=== PATIENT | female | born 1990 | race African-American/Black ===

== ENCOUNTER → 2018-12-03 | Outpatient (CLI) | payer BC ==
--- NOTE | 2018-12-03 16:50 | RADIOLOGY REPORT (SQ) ---
EXAM DESCRIPTION: HYSTEROSALPINGOGRAM; HYSTERO CATH/INJECTION COMPLETED DATE/TIME: 12/03/2018 3:13 pm; 12/03/2018 3:14 pm REASON FOR STUDY: N97.9 FEMALE INFERTILITY, UNSPECIFIED N97.9 FEMALE INFERTILITY, UNSPECIFIED COMPARISON: None. PROCEDURE: PRE-PROCEDURE: Procedure was explained to the patient. She was told to expect cramping du ring the procedure, and possible spotting post procedure. PROCEDURE: The cervix was prepped in sterile fashion. Under direct visual inspection, the cervix was cannulated with the hysterosalpingogram catheter and contrast injected. TECHNIQUE: Temporal fluoroscopic images acquired during the procedure stored to PACS. FLUOROSCOPY TIME: Less than 10 seconds 20 digital radiographic images saved to PACS. LIMITATIONS: None. FINDINGS: UTERUS: No identified anomalies. No synechia. RIGHT ADNEXA: Normal size fallopian tube. Free spill of contrast into the peritoneal cavity. LEFT ADNEXA: Normal size fallopian tube. Free spill of contrast into the peritoneal cavity. POST PROCEDURE: The patient tolerated the procedure with no adverse effects. IMPRESSION: NORMAL HYSTEROSALPINGOGRAM. COMMENT: Quality ID 145: Final reports for procedures using fluoroscopy that document radiation exp osure indices, or exposure time and number of fluorographic images (if radiation exposure indices are not available) TECHNICAL DOCUMENTATION: JOB ID: [id number] [employer]- All Rights Reserved Reading location - IP/workstation name: [email or web address]
== END ==
LOC: RAD 15:09
PROVIDERS: ATTEND Obstetrics & Gynecology
DX: N97.9 Female infertility, unspecified (principal)
CPT/HCPCS: 58340; 74740

== ENCOUNTER 2019-02-23 22:10 | Emergency (ER) | payer BC ==
[2019-02-23 23:47] LABS: ABSOLUTE BASOPHILS # (AUTO) 0.1 10^3/uL (0.0-0.2); ABSOLUTE EOSINOPHILS # (AUTO) 0.4 10^3/uL (0.0-0.6); ABSOLUTE LYMPHOCYTES (AUTO) 2.3 10^3/uL (0.5-4.7); ABSOLUTE MONOCYTES (AUTO) 0.6 10^3/uL (0.1-1.4); ABSOLUTE NEUT (AUTO) 6.9 10^3/uL (1.7-8.2); BASOPHILS % (AUTO) 0.5 % (0-2); EOSINOPHILS % (AUTO) 4.2 % (0-6); HEMATOCRIT 36.4 % (36.0-47.0); HEMOGLOBIN 12.8 g/dL (12.0-15.5); MEAN CORPUSCULAR HEMOGLOBIN 30.6 pg (27.0-33.4); MEAN CORPUSCULAR HGB CONC 35.2 g/dL (32.0-36.0); MEAN CORPUSCULAR VOLUME 87 fl (80-97); MONOCYTES % (AUTO) 6.3 % (3-13); PLATELET COUNT 362 10^3/uL (150-450); RED BLOOD COUNT 4.19 10^6/uL (3.72-5.28); RED CELL DISTRIBUTION WIDTH 13.1 % (11.5-14.0); TOTAL CELLS COUNTED % (AUTO) 100 %; WHITE BLOOD COUNT 10.3 10^3/uL (4.0-10.5)
[2019-02-23 23:52] LABS: APPEARANCE,URINE SLIGHTLY-CLOUDY; BILIRUBIN,URINE NEGATIVE (NEGATIVE); COLOR,URINE YELLOW; GLUCOSE, URINE NEGATIVE (NEGATIVE); KETONES,URINE NEGATIVE (NEGATIVE); LEUKOCYTE ESTERASE,URINE NEGATIVE (NEGATIVE); NITRITE,URINE NEGATIVE (NEGATIVE); PROTEIN,URINE 30 mg/dL (NEGATIVE); URINE SPECIFIC GRAVITY 1.029
--- NOTE | 2019-02-24 02:39 | RADIOLOGY REPORT (SQ) ---
CLINICAL HISTORY: Pelvic pressure, bleeding,IUP w/ FHT on FRIDAY COMPARISON: None. TECHNIQUE: US TRANSVAGINAL on 02/24/2019 1:37 AM CDT FINDINGS: Uterus measures 9.5 cm. Cervix measures 3 cm. There is no evidence of IUP. Left ovarian cyst measures 2.3 cm. The ovaries are otherwise unremarkable with patent flow. IMPRESSION: No gestational sac visualized in the uterus.
--- NOTE | 2019-02-24 03:09 | ER Document Report ---
Entered by MALI SAWANT SCRIBE 02/24/19 0142 Acting as scribe for:NARAYAN FELDMAN MD ED General - General Chief Complaint: Vaginal Bleeding Stated Complaint: VAGINAL BLEEDING, 7 WEEKS PREG Time Seen by Provider: 02/24/19 01:26 Primary Care Provider: VENECIA LAGUERRE MD [Primary Care Provider] - Follow up as needed Notes: Patient is a 28-year-old female that is currently 7 weeks presents to the emergency department complaining of vaginal bleeding. Patient states that it began today, that the bleeding was brown spotting. Patient states that on Monday 02/19 she had an ultrasound done, and was told she has a intrauterine with a heartbeat present. Patient states that this is her first , patient is a A0. Patient states that she is currently taking prenatals nothing else. TRAVEL OUTSIDE OF THE [place] IN LAST 30 DAYS: No - Related Data Allergies/Adverse Reactions: No Known Allergies Allergy (Verified 02/23/19 22:27) Past Medical History - General Information source: Patient Last Menstrual Period: 12/29/18 - Social History Smoking Status: Never Smoker Cigarette use (# per day): No Chew tobacco use (# tins/day): No Frequency of alcohol use: None Drug Abuse: None Family History: Reviewed & Not Pertinent Patient has suicidal ideation: No Patient has homicidal ideation: No Past Surgical History: Reports: Hx Orthopedic Surgery - rt ft bunion surg Review of Systems - Review of Systems Constitutional: No symptoms reported EENT: No symptoms reported Cardiovascular: No symptoms reported Respiratory: No symptoms reported Gastrointestinal: No symptoms reported Genitourinary: No symptoms reported Female Genitourinary: See HPI, , Vaginal bleeding Musculoskeletal: No symptoms reported Skin: No symptoms reported Hematologic/Lymphatic: No symptoms reported Neurological/Psychological: No symptoms reported -: Yes All other systems reviewed and negative Physical Exam - Vital signs Vitals: Temp Pulse Resp BP Pulse Ox 98.1 F 88 18 134/62 H 99 02/23/19 22:32 02/23/19 22:32 02/23/19 22:32 02/23/19 22:32 02/23/19 22:32 - Notes Notes: Physical Exam: General: Alert, appears well. HEENT: Normocephalic. Atraumatic. PERRL. Extraocular movements intact. Oropharynx clear. Neck: Supple. Non-tender. Respiratory: No respiratory distress. Clear and equal breath sounds bilaterally. Cardiovascular: Regular rate and rhythm. Abdominal: Normal Inspection. Non-tender. No distension. Normal Bowel Sounds. Back: Non-tender. No deformity or step off. Extremities: Moves all four extremities. Upper extremities: Normal inspection. Normal ROM. Lower extremities: Normal inspection. No edema. Normal ROM. Neurological: Normal cognition. AAOx4. Normal speech. Psychological: Normal affect. Normal Mood. Skin: Warm. Dry. Normal color. Course - Vital Signs Vital signs: Temp Pulse Resp BP Pulse Ox 98.1 F 88 18 134/62 H 99 02/23/19 22:32 02/23/19 22:32 02/23/19 22:32 02/23/19 22:32 02/23/19 22:32 - Laboratory Result Diagrams: 02/23/19 23:20 Laboratory results interpreted by me: 02/23/19 02/23/19 23:20 23:20 Beta HCG, Quant 5778.90 H Urine Protein 30 H Urine Blood LARGE H Urine Urobilinogen 2.0 H Urine Ascorbic Acid 40 H - Diagnostic Test Radiology reviewed: Image reviewed, Reports reviewed - Ultrasound does not show a gestational sac. Discharge - Discharge Clinical Impression: Complete miscarriage Condition: Stable Disposition: HOME, SELF-CARE Additional Instructions: Miscarriage You have had a miscarriage (medically called a "spontaneous "). The miscarriage occurred because the fetus did not develop normally. There is nothing you did to cause it, and nothing you could have done to prevent it. About one in four ends in miscarriage. You should rest in bed for two or three days. As there is some risk of infection of the uterus, you should not have intercourse for one week (or until okayed by your physician). You might not have a period for six to eight weeks. You should not become again for at least three months -- the uterus requires time to get back to normal. Call the doctor or return for re-examination if there is heavy or persistent vaginal bleeding, fever, foul discharge, continued cramping pains, or abdominal pain. [facility] tomorrow to schedule follow-up appointment. RETURN TO THE EMERGENCY ROOM IF ANY NEW OR WORSENING SYMPTOMS. Referrals: VENECIA LAGUERRE MD [Primary Care Provider] - Follow up as needed Scribe Attestation: 02/24/19 03:10 I personally performed the services described in the documentation, reviewed and edited the documentation which was dictated to the scribe in my presence, and it accurately records my words and actions. I personally performed the services described in the documentation, reviewed and edited the documentation which was dictated to the scribe in my presence, and it accurately records my words and actions.
[2019-02-24 04:20] VITALS: BP 128/60
== END 2019-02-24 04:05 | disposition home or self-care (01) ==
LOC: ER 22:10
DX: O03.9 Complete or unspecified spontaneous abortion without complication (principal); Z3A.01 Less than 8 weeks gestation of pregnancy
CPT/HCPCS: 36415; 76817; 81001; 84702; 85025; 86900; 86901; 99284

== ENCOUNTER 2020-02-05 22:51 | Inpatient (IN) | payer MEDICAID ==
[2020-02-05 23:43] LABS: APPEARANCE,URINE SLIGHTLY-CLOUDY; BILIRUBIN,URINE NEGATIVE (NEGATIVE); COLOR,URINE YELLOW; GLUCOSE, URINE NEGATIVE (NEGATIVE); KETONES,URINE NEGATIVE (NEGATIVE); LEUKOCYTE ESTERASE,URINE MODERATE (NEGATIVE); NITRITE,URINE NEGATIVE (NEGATIVE); PROTEIN,URINE NEGATIVE (NEGATIVE); URINE SPECIFIC GRAVITY 1.017; UROBILINOGEN,URINE NEGATIVE mg/dL (<2.0)
[2020-02-05 23:59] LABS: URINE AMPHETAMINES SCREEN NEGATIVE; URINE BARBITURATES SCREEN NEGATIVE; URINE BENZODIAZEPINES SCREEN NEGATIVE; URINE COCAINE SCREEN NEGATIVE; URINE MARIJUANA (THC) SCREEN NEGATIVE; URINE METHADONE SCREEN NEGATIVE; URINE PHENCYCLIDINE SCREEN NEGATIVE
[2020-02-06] MEDS ORDERED: OXYTOCIN 10 UNIT/ML VIAL ONE ×2 (01:32→04:55)
[2020-02-06] MEDS ORDERED: EPHEDRINE SULFATE INJ 50 MG/1 ML AMPULE ONE ×2 (01:33→04:55)
[2020-02-06] MEDS ORDERED: LIDOCAINE 1% INJ-PF (10 MG/ML) 30 ML SDV ONE ×3 (01:33→04:36)
[2020-02-06] MEDS ORDERED: FENTANYL/BUPIVACAINE/NS/PF 300 MCG/150 ML RTUINJ EPI ONE (01:33)
[2020-02-06] MEDS ORDERED: OXYTOCIN/0.9 % SODIUM CHLORIDE 0 UNIT/0 ML RTUINJ ONE (01:33)
[2020-02-06] MEDS ORDERED: BUPIVACAINE HCL 0.25 % INJ/PF (2.5 MG/1 ML) 30 ML VIAL ONE (01:33)
[2020-02-06] MEDS ORDERED: MISOPROSTOL 0.2 MG TABLET ONE (01:33)
[2020-02-06] MEDS: RINGERS SOLUTION,LACTATED 1,000 ML IV PRN ×2 (01:39→03:01)
[2020-02-06 01:58] LABS: ABSOLUTE EOSINOPHILS # (AUTO) 0.1 10^3/uL (0.0-0.6); ABSOLUTE LYMPHOCYTES (AUTO) 1.3 10^3/uL (0.5-4.7); ABSOLUTE MONOCYTES (AUTO) 0.8 10^3/uL (0.1-1.4); ABSOLUTE NEUT (AUTO) 7.7 10^3/uL (1.7-8.2); BASOPHILS % (AUTO) 0.2 % (0-2); EOSINOPHILS % (AUTO) 0.8 % (0-6); HEMATOCRIT 32.4 % (36.0-47.0); HEMOGLOBIN 11.2 g/dL (12.0-15.5); LYMPHOCYTES % (AUTO) 13.2 % (13-45); MEAN CORPUSCULAR HEMOGLOBIN 29.9 pg (27.0-33.4); MEAN CORPUSCULAR HGB CONC 34.5 g/dL (32.0-36.0); MEAN CORPUSCULAR VOLUME 87 fl (80-97); MONOCYTES % (AUTO) 7.8 % (3-13); PLATELET COUNT 293 10^3/uL (150-450); RED BLOOD COUNT 3.74 10^6/uL (3.72-5.28); RED CELL DISTRIBUTION WIDTH 14.8 % (11.5-14.0); TOTAL CELLS COUNTED % (AUTO) 100 %; WHITE BLOOD COUNT 9.9 10^3/uL (4.0-10.5)
[2020-02-06] MEDS ORDERED: CITRIC ACID/SODIUM CITRATE ORAL SOLN 15 ML UDCUP ONE (04:36)
[2020-02-06] MEDS ORDERED: CEFAZOLIN 2 GM/D5W RTU 2 GM/50 ML RTUPB IV ONE (04:36)
[2020-02-06] MEDS ORDERED: LIDOCAINE 2% INJ-PF (20 MG/ML) 10 ML AMPUL ONE (04:41)
--- NOTE | 2020-02-06 04:43 | Admission Physical ---
Datetime Report Generated by CPN: 02/06/2020 04:42 CURRENT ADMISSION Chief Complaint: Uterine Contractions Indication for Induction: Not Applicable Admit Impression : Term, Intrauterine ; Active Labor; Intact Membranes Admit Plan: Admit to Unit; Initiate Labor Protocol ALLERGIES Medication Allergies: No Medication Allergies: No Known Allergies (02/05/2020) Latex: No Latex Allergies Food Allergies: denies Environmental Allergies: denies OBSTETRICAL HISTORY EDC: 02/06/2020 00:00 : 2 Para: 0 Term: 0 : 0 SAB: 1 IAB: 0 Livin Gestational Diabetes: No Rh Sensitization: No Incompetent Cervix: No DEBRA: No Infertility: No ART Treatment: Yes Uterine Anomaly: No IUGR: No Hx Previous C/S: No Macrosomia: No Hx Loss/Stillborn: No PIH: No Hx : No Placenta Previa/Abruption: No Depression/PP Depression: No PTL/PROM: No Post Hemorrhage: No Current Procedures: Ultrasound; NST Obstetrical History Comments: g1-sab 7-8 weeks g2-current , clomid SEE RECORDS Alcohol: No Marijuana : No Cocaine: No Other Illicit Drugs: No Cigarettes: Never Smoker. [id number] MEDICAL HISTORY Diabetes: No Blood Transfusion: No Pulmonary Disease (Asthma, TB): No Breast Disease: No Hypertension: No Mortgage Or Loan Underwriter Surgery: No Heart Disease: No Hosp/Surgery: Yes Autoimmune Disorder: No Anesthetic Complications: No Kidney Disease: No Abnormal Pap Smear: No Neuro/Epilepsy: No Psychiatric Disorders: No Other Medical Diseases: No Hepatitis/Liver Disease: No Significant Family History: No Varicosities/Phlebitis: No Trauma/Violence : No Thyroid Dysfunction: No Medical History Comments: bunion surgery on right foot in 2008, clomid INFECTIOUS HISTORY Gonorrhea: No Genital Herpes: No Chlamydia: No Tuberculosis: No Syphilis: No Hepatitis: No HIV/AIDS Exposure: No Rash or Viral Illness: No HPV: No Infectious History Comments: trich in 2019 per records PHYSICAL EXAM General: Normal HEENT: Normal Neurologic: Normal Thyroid: Normal Heart: Normal Lungs: Normal Breast: Normal Back: Normal Abdomen: Normal Genitourinary Exam: Normal Extremities: Normal DTRs: Normal Pelvic Type: Adequate Vital Signs: Reviewed; Within Normal Limits VAGINAL EXAM Dilatation: 4 Effacement: 90 Station: -2 MEMBRANES Pooling: Negative Membranes: Intact FETUS A EGA: 40.0 Monitoring: External US FHR- Baseline: 150 Variability: Moderate 6-25bpm Accelerations: 15X15 Decelerations: None FHR Category: Category I Estimated Weight (gm): 3500 Presentation: Vertex Admit Comment: Late entry: patient began to have recurrent late decels soon after epidural received. corrections done and heart tones more reassuring. AROM performed with meconium present. continued to monitor and FHTs became more concenring with again repetitive prolonged decels. d/w pt and partner regarding need for ceserean delivery and they are in agreement. PLANS FOR LABOR AND DELIVERY Labor and Delivery: Plan Pain Management: Medications Feeding Preference: Breast Benefit of Breast Feed Discussed: Yes Circumcision: Yes INFORMED CONSENT Signature: with User ID: [email or web address]
[2020-02-06] MEDS ORDERED: MIDAZOLAM 2 MG/2 ML INJ ONE (04:55)
[2020-02-06] MEDS ORDERED: FENTANYL CITRATE INJ/PF 100 MCG/2 ML AMPUL ONE (04:55)
[2020-02-06] MEDS ORDERED: KETOROLAC TROMETHAMINE INJ/PF 30 MG/1 ML SDV ONE (04:55)
[2020-02-06] MEDS ORDERED: ONDANSETRON HCL INJ/PF 4 MG/2 ML SDV ONE (04:56)
[2020-02-06] MEDS ORDERED: METHYLERGONOVINE MALEATE INJ/PF 0.2 MG/1 ML AMPULE ONE (04:56)
[2020-02-06] MEDS ORDERED: ACETAMINOPHEN 1,000 MG/100 ML RTUPB IV ONE (04:56)
[2020-02-06] MEDS ORDERED: OXYCODONE-ACETAMINOPHEN 5-325 MG TABLET PO PRN (05:42)
[2020-02-06] MEDS ORDERED: MEASLES,MUMPS&RUBELLA VACC/PF 0.5 ML VIAL SUBCUT PRN (05:42)
[2020-02-06] MEDS ORDERED: ACETAMINOPHEN 325 MG TABLET PO PRN (05:42)
[2020-02-06] MEDS ORDERED: PROMETHAZINE HCL INJ 25 MG/1 ML VIAL IV PRN (05:42)
[2020-02-06] MEDS ORDERED: ACETAMINOPHEN 1,000 MG/100 ML RTUPB IV PRN (05:42)
[2020-02-06] MEDS ORDERED: DIPH/PERTUSS(ACELL)/TETANUS VAC/PF 0.5 ML SYR (>=10YO) IM PRN (05:42)
[2020-02-06] MEDS ORDERED: OXYTOCIN/0.9 % SODIUM CHLORIDE 30 UNIT/500 ML RTUINJ IV PRN (05:42)
[2020-02-06] MEDS ORDERED: RINGERS SOLUTION,LACTATED 1,000 ML IV PRN (05:42)
--- NOTE | 2020-02-06 05:51 | Operative Report ---
Operative Report DATE OF SURGERY: 02/06/20 PREOPERATIVE DIAGNOSIS: IUP @ 40 wks, nonreassuring heart tones POSTOPERATIVE DIAGNOSIS: same OPERATION: Primary low transverse hysterotomy section SURGEON: YANICK RICH ANESTHESIA: Epidural TISSUE REMOVED OR ALTERED: None COMPLICATIONS: None ESTIMATED BLOOD LOSS: 800 cc INTRAOPERATIVE FINDINGS: Male infant cephalic presentation with Apgars of 8 and 9 PROCEDURE: PROCEDURE IN DETAIL: The patient was taken to the operating room, prepared and draped in a normal sterile fashion in a supine position with a leftward tilt. A transverse skin incision was made with a scalpel and carried through to the underlying layer of fascia with the same scalpel. The fascia was excised in the midline and extended laterally with Vince. The fascia was then dissected from the rectus muscle sharply with Vince and the rectus muscle was divided and the peritoneal cavity was entered sharply with the same Metzenbaum. With good visualization of the bladder and the uterus the bladder blade was inserted. The hysterotomy was nicked with a scalpel and extended laterally with surgeon finger fraction. The was then delivered atraumatically. The nose and mouth were suctioned with a suction bulb, the cord was clamped and cut and handed off to awaiting pediatricians. Cord blood was collected. The placenta was removed manually. The uterus was exteriorized and cleared of clots and debris. The hysterotomy was closed with 0 Monocryl in a running, locked fashion. A second layer of the same suture was used to imbricate to ensure hemostasis. The uterus was returned to the abdomen and peritoneal cavity was cleared of clots and debris. The rectus muscle and peritoneum were repaired with mattress stitch of 2-0 Chromic. The fascia was closed with 0-Vicryl. The subcutaneous layer was closed with plain catgut and the skin was closed with 4-0 Vicryl. The patient tolerated the procedure well. Sponge, lap, and needle counts correct x2 and the patient was taken to recovery in stable condition.
--- NOTE | 2020-02-06 06:25 | Delivery Summary ---
Del Sum A-C Datetime Report Generated by CPN: 02/06/2020 06:25 DELIVERY PERSONNEL DELIVERY PERSONNEL: [id number] Delivery Doctor:: Madelin Romero MD Anesthesiologist:: Dr. Radha MD FAMILY INDEPENDENCE CASE MANAGER:: Vielka Boykin CRNA Wet Press Tender:: Shantal Berkowitznic, RN Photonics Engineering Technician/WEIGHTS AND MEASURES SEALER: Maryantonio Gonzales, ST Photonics Engineering Technician/WEIGHTS AND MEASURES SEALER: Ingrid Lerner, ST MATERNAL INFORMATION Delivery Anesthesia: Epidural Medications After Delivery: Pitocin Bolus-Please Comment Delivery QBL: 340 Maternal Complications: None LABOR SUMMARY EDC: 02/06/2020 00:00 No. Babies in Womb: 1 Attempted: No Labor Anesthesia: Epidural LABOR INFORMATION Reason for Induction: Not Applicable Onset of Labor: 02/06/2020 01:28 Oxytocin: N/A Group B Beta Strep: negative Antibiotics # of Doses: 0 Antibiotics Time of Last Dose: N/A Name of Antibiotic Given: N/A Steroids Given: None Reason Steroids Not Administered: Not Applicable MEMBRANES Membranes Rupture Method: Artificial Rupture of Membranes: 02/06/2020 03:49 Length of Rupture (hr): 1.37 Amniotic Fluid Color: Moderate Meconium Amniotic Fluid Amount: Moderate Amniotic Fluid Odor: Normal STAGES OF LABOR Stage 3 hr: 0 Stage 3 min: 1 Total Time in Labor hr: 3 Total Time in Labor min: 44 VAGINAL DELIVERY Episiotomy: None Laceration #1: None Laceration Extension #1: N/A CSECTION DELIVERY Primary Indication: Nonreassuring Status CSection Urgency: Non-Scheduled CSection Incidence: Primary Labor: Labor Elective: Nonelective CSection Incision: Lower Uterine Transverse BABY A INFORMATION Delivery Date/Time: 02/06/2020 05:11 Method of Delivery: Nurse Controlled Delivery: No Born in Route : No : N/A Forceps: N/A Vacuum Extraction: N/A Shoulder Dystocia : No PRESENTATION/POSITION BABY A Presentation: Cephalic Cephalic Presentation: Vertex Vertex Position: Left Occipital Anterior Breech Presentation: N/A PLACENTA INFORMATION BABY A Placenta Delivery Time : 02/06/2020 05:12 Placenta Method of Delivery: Manual Removal Placenta Status: Delivered SCORES BABY A Heart Rate 1 min: >100 bpm Resp Effort 1 min: Good Cry Reflex Irritability 1 min: Cough or Sneeze or Pulls Away Muscle Tone 1 min: Active Motion Color 1 min: Blue/Pale Resuscitation Effort 1 min: Tactile Stimulation SCORE 1 MIN: 8 Heart Rate 5 min: >100 bpm Resp Effort 5 min: Good Cry Reflex Irritability 5 min: Cough or Sneeze or Pulls Away Muscle Tone 5 min: Active Motion Color 5 min: Body [place], Extremities Blue Resuscitation Effort 5 min: Tactile Stimulation SCORE 5 MIN: 9 INFANT INFORMATION BABY A Gestational Age at Delivery: 40.0 Gestational Status: Full Term- 39- 40.6 Weeks Outcome : Liveborn Infant Condition : Stable Infant Sex: Male IDENTIFICATION BABY A Verification Date/Time: 02/06/2020 05:21 ID Band Number: [id number] Mother's Name Verified: Yes RN Verifying Infant: Bernadine Valdovinos ALEXANDRA Additional Verifying Personnel: Sophie Issa RN WEIGHT/LENGTH BABY A Birthweight (gm): 3200 Infant Weight (lb): 7 Weight (oz): 1 Length (in): 20.00 Infant Length (cm): 50.80 CORD INFORMATION BABY A No. Cord Vessels: 3 Nuchal Cord : Around Neck x1, Tight Cord Blood Taken: Yes-For Eval (Mom's Blood Type - or O+) Suction: Mouth; Nose ASSESSMENT BABY A Complications: Multiple Late Decels; Multiple Variable Decels; Other Complications- Other: prolonged declerations Physical Findings at Delivery: Within Normal Limits Physical Findings- Other: See full nursery collections officer Infant Respirations: Appears Normal Skin to Skin: No Printed Circuit Boards Pinner/ALS Called : No Transferred To: Nursery BABY B INFORMATION : N/A
[2020-02-06] MEDS: OXYCODONE-ACETAMINOPHEN 5-325 MG TABLET PO PRN ×2 (08:35→19:45)
[2020-02-06] MEDS: MORPHINE SULFATE 10 MG/ML INJ IV PRN ×2 (09:39→17:25)
[2020-02-06] MEDS: PRENATAL VITAMIN W DHA CAPSULE PO SCH (09:40)
[2020-02-06] MEDS: DOCUSATE SODIUM 100 MG CAPSULE PO SCH ×2 (09:40→17:25)
[2020-02-06] MEDS: KETOROLAC TROMETHAMINE INJ/PF 30 MG/1 ML SDV IV SCH ×2 (14:15→21:05)
[2020-02-07] MEDS: IBUPROFEN 800 MG TABLET PO SCH ×4 (05:12→23:13)
[2020-02-07 06:30] LABS: HEMATOCRIT 28.5 % (36.0-47.0); HEMOGLOBIN 9.9 g/dL (12.0-15.5); MEAN CORPUSCULAR HGB CONC 34.6 g/dL (32.0-36.0); MEAN CORPUSCULAR VOLUME 87 fl (80-97); PLATELET COUNT 237 10^3/uL (150-450); RED CELL DISTRIBUTION WIDTH 14.4 % (11.5-14.0); WHITE BLOOD COUNT 9.7 10^3/uL (4.0-10.5)
--- NOTE | 2020-02-07 08:48 | PDOC PROGRESS REPORT ---
Subjective Progress Note for:: 02/07/20 Subjective:: Doing well. No f/c, n/v overnight. Voiding well this am. Pain managed with Ibuprofen and Percocet. Breast feeding and is going well. States milk not "coming in well yet". Discussed it will be 3-5 days. Hydration encouraged. Bleeding light. No dizziness with ambulation. Passing gas Reason For Visit: Physical Exam - Physical Exam Vital Signs: Temp Pulse Resp BP Pulse Ox 97.6 F 102 H 16 109/56 L 100 02/07/20 07:45 02/07/20 07:45 02/07/20 07:45 02/07/20 07:45 02/07/20 07:45 Intake & Output 02/06/20 02/07/20 02/08/20 06:59 06:59 06:59 Intake Total 171 2480 Output Total 3450 Balance 171 -970 Weight 93.3 kg General appearance: PRESENT: no acute distress, cooperative Respiratory exam: PRESENT: clear to auscultation gerry Cardiovascular exam: PRESENT: RRR, +S1, +S2 Pulses: PRESENT: normal dorsalis pedis pul, +2 pedal pulses bilateral GI/Abdominal exam: PRESENT: normal bowel sounds - Mild tenderness when palpating fundus. Fundus firm and 1 below, soft Extremities exam: PRESENT: full ROM. ABSENT: calf tenderness, clubbing, pedal edema Psychiatric exam: PRESENT: appropriate affect, normal mood Result Laboratory Results: 02/07/20 06:05 02/07/20 06:05 WBC 9.7 RBC 3.30 L Hgb 9.9 L Hct 28.5 L MCV 87 MCH 30.0 MCHC 34.6 RDW 14.4 H Plt Count 237 Assessment & Plan - Diagnosis (1) S/P primary low transverse Is this a current diagnosis for this admission?: Yes - Time Time Spent with patient: Less than 15 minutes Medications reviewed and adjusted accordingly: Yes Anticipated discharge: Home Within: within 48 hours - Plan Summary Plan Summary: 29 yo s/p PCS for NRFHT on 02/06/20, PPD # 1 -Doing well -Tolerating PO -Voiding, passing gas -Breast feeding, without incidence -Bleeding light - Hgb pp 11.9-->9.9, Iron ordered BID -Baby boy , doing well. -Continue current PP care
[2020-02-07] MEDS: DOCUSATE SODIUM 100 MG CAPSULE PO SCH ×2 (09:56→17:48)
[2020-02-07] MEDS: FERROUS SULFATE 325 MG TABLET PO SCH ×2 (09:56→17:48)
[2020-02-07] MEDS: PRENATAL VITAMIN W DHA CAPSULE PO SCH (10:32)
[2020-02-07] MEDS: SIMETHICONE 80 MG TAB.CHEW PO PRN (20:42)
[2020-02-08] MEDS: IBUPROFEN 800 MG TABLET PO SCH ×2 (05:05→12:30)
--- NOTE | 2020-02-08 08:56 | PDOC DISCHARGE SUMMARY ---
Impression - Admit/DC Date/PCP Admission Date/Primary Care Provider: 02/06/20 01:33 YANICK RICH MD Discharge Date: 02/08/20 - Discharge Diagnosis (1) Active labor at term Is this a current diagnosis for this admission?: Yes (2) Non-reassuring electronic monitoring tracing Is this a current diagnosis for this admission?: Yes (3) S/P primary low transverse Is this a current diagnosis for this admission?: Yes - Additional Information Discharge Diet: Regular Discharge Activity: No Lifting/Push/Pulling, Pelvic Rest, No tub bath Referrals: YANICK RICH MD [Primary Care Provider] - Prescriptions: Ibuprofen [Motrin 800 mg Tablet] 800 mg PO Q8HP PRN #90 tablet PRN Reason: Oxycodone HCl/Acetaminophen [Percocet 5-325 mg Tablet] 1 tab PO Q4HP PRN #30 tablet PRN Reason: Home Medications: Pnv No.95/Ferrous Fum/Folic AC [ Vitamins Tablet] 1 tab PO DAILY 02/05/20 Ibuprofen [Motrin 800 mg Tablet] 800 mg PO Q8HP PRN #90 tablet 02/08/20 Oxycodone HCl/Acetaminophen [Percocet 5-325 mg Tablet] 1 tab PO Q4HP PRN #30 tablet 02/08/20 Results Laboratory Results: WBC 9.7 10^3/uL (4.0-10.5) 02/07/20 06:05 RBC 3.30 10^6/uL (3.72-5.28) L 02/07/20 06:05 Hgb 9.9 g/dL (12.0-15.5) L 02/07/20 06:05 Hct 28.5 % (36.0-47.0) L 02/07/20 06:05 MCV 87 fl (80-97) 02/07/20 06:05 MCH 30.0 pg (27.0-33.4) 02/07/20 06:05 MCHC 34.6 g/dL (32.0-36.0) 02/07/20 06:05 RDW 14.4 % (11.5-14.0) H 02/07/20 06:05 Plt Count 237 10^3/uL (150-450) 02/07/20 06:05 Lymph % (Auto) 13.2 % (13-45) 02/06/20 01:48 [place] % (Auto) 7.8 % (3-13) 02/06/20 01:48 Eos % (Auto) 0.8 % (0-6) 02/06/20 01:48 Baso % (Auto) 0.2 % (0-2) 02/06/20 01:48 Absolute Neuts (auto) 7.7 10^3/uL (1.7-8.2) 02/06/20 01:48 Absolute Lymphs (auto) 1.3 10^3/uL (0.5-4.7) 02/06/20 01:48 Absolute Monos (auto) 0.8 10^3/uL (0.1-1.4) 02/06/20 01:48 Absolute Eos (auto) 0.1 10^3/uL (0.0-0.6) 02/06/20 01:48 Absolute Basos (auto) 0.0 10^3/uL (0.0-0.2) 02/06/20 01:48 Seg Neutrophils % 78.0 % (42-78) 02/06/20 01:48 Urine Color YELLOW 02/05/20 23:04 Urine Appearance SLIGHTLY-CLOUDY 02/05/20 23:04 Urine pH 6.0 (5.0-9.0) 02/05/20 23:04 Ur Specific [place] 1.017 02/05/20 23:04 Urine Protein NEGATIVE mg/dL (NEGATIVE) 02/05/20 23:04 Urine Glucose (UA) NEGATIVE mg/dL (NEGATIVE) 02/05/20 23:04 Urine Ketones NEGATIVE mg/dL (NEGATIVE) 02/05/20 23:04 Urine Blood SMALL (NEGATIVE) H 02/05/20 23:04 Urine Nitrite NEGATIVE (NEGATIVE) 02/05/20 23:04 Urine Bilirubin NEGATIVE (NEGATIVE) 02/05/20 23:04 Urine Urobilinogen NEGATIVE mg/dL (<2.0) 02/05/20 23:04 Ur Leukocyte Esterase MODERATE (NEGATIVE) H 02/05/20 23:04 Urine Ascorbic Acid NEGATIVE (NEGATIVE) 02/05/20 23:04 Urine Opiates Screen NEGATIVE 02/05/20 23:04 Urine Methadone Screen NEGATIVE 02/05/20 23:04 Ur Barbiturates Screen NEGATIVE 02/05/20 23:04 Ur Phencyclidine Scrn NEGATIVE 02/05/20 23:04 Ur Amphetamines Screen NEGATIVE 02/05/20 23:04 U Benzodiazepines Scrn NEGATIVE 02/05/20 23:04 Urine Cocaine Screen NEGATIVE 02/05/20 23:04 U Marijuana (THC) Screen NEGATIVE 02/05/20 23:04 RPR NONREACTIVE (NONREACTIVE) 02/06/20 01:48 Blood Type O POSITIVE 02/06/20 01:48 Antibody Screen NEGATIVE 02/06/20 01:48 Plan Plan of Treatment: follow up in [address] [facility] for incision check
[2020-02-08] MEDS: FERROUS SULFATE 325 MG TABLET PO SCH (09:56)
[2020-02-08] MEDS: DOCUSATE SODIUM 100 MG CAPSULE PO SCH (09:56)
[2020-02-08] MEDS: PRENATAL VITAMIN W DHA CAPSULE PO SCH (09:56)
[2020-02-08] MEDS: SIMETHICONE 80 MG TAB.CHEW PO PRN (10:41)
[2020-02-08 12:57] VITALS: BP 119/71
== END 2020-02-08 12:45 | disposition home or self-care (01) | DRG 788 ==
LOC: LC 22:51 → LR 02-06 01:33 → 2S 02-06 08:07
PROVIDERS: ADMIT Obstetrics & Gynecology; ATTEND Obstetrics & Gynecology
PROC: 10D00Z1 Extraction of Products of Conception, Low, Open Approach (ICD-10-PCS; principal; 2020-02-06)
DX: O76 Abnormality in fetal heart rate and rhythm complicating labor and delivery (principal); O77.0 Labor and delivery complicated by meconium in amniotic fluid; O69.1XX0 Labor and delivery complicated by cord around neck, with compression, not applicable or unspecified; Z3A.40 40 weeks gestation of pregnancy; Z37.0 Single live birth
CPT/HCPCS: 1967; 1968; 36415; 80307; 81005; 85025; 85027; 86592; 86850; 86900; 86901; 94760; 94799; 99140; J0131; J0690; J1885; J2210; J2250; J2270; J2405; J2590; J3010; J3490